=== PATIENT | female | born 1990 | race Caucasian/White ===

== ENCOUNTER → 2016-10-10 | Outpatient (CLI) | payer OTHER | END | disposition home or self-care (01) | LOC: C.PAPS 11:21 | PROVIDERS: ATTEND Physician Assistant | DX: Z12.4 Encounter for screening for malignant neoplasm of cervix (principal) ==

== ENCOUNTER → 2016-10-10 | Outpatient (CLI) | payer OTHER ==
[2016-10-13 01:32] LABS: CHLAMYDIA TRACH RNA*** NOT DETECTED (NOT DETECTED); GC (NEIS GONORRHOEAE)RNA** NOT DETECTED (NOT DETECTED)
== END ==
LOC: C.LABSPEC 18:08
PROVIDERS: ATTEND Physician Assistant
DX: Z01.419 Encounter for gynecological examination (general) (routine) without abnormal findings (principal)

== ENCOUNTER → 2017-05-15 | Outpatient (CLI) | payer OTHER ==
[2017-05-15 13:08] LABS: FOLLICLE STIMULAT HORMONE 7.91 IU/L; PROLACTIN 16.24 ng/mL
== END | disposition home or self-care (01) ==
LOC: C.LABMFLN 07:39
PROVIDERS: ATTEND Obstetrics & Gynecology
DX: Z31.41 Encounter for fertility testing (principal)

== ENCOUNTER → 2017-08-07 | Outpatient (CLI) | payer OTHER ==
--- NOTE | 2017-08-07 15:09 | DIAGNOSTIC IMAGING REPORT ---
THYROID ULTRASOUND HISTORY: E03.9 Hypothyroidism [id number] COMPARISON: None. FINDINGS: Right lobe: 6.4 x 2.3 x 1.9 cm. Dominant 2.0 x 1.7 x 1.4 cm solid and cystic nodule within the lower pole. A 9 mm hypoechoic nodule seen adjacent to the lower pole. This favors a small lymph node. Left lobe: 5.2 x 1.9 x 1.7 cm. There are 2 hypoechoic nodules/cysts in the lower pole with the largest measuring 9 x 6 mm. Isthmus: 5 mm in thickness. A few small hypoechoic nodules/cysts measuring up to 6 mm. IMPRESSION: Dominant 2.2 x 1.7 x 1.4 cm solid and cystic nodule within the lower pole of the right thyroid lobe. Recommend ultrasound-guided fine-needle aspiration for further evaluation. Electronically signed by: Ruiz Pena M.D. 08/07/2017 3:07 PM Dictated Date/Time: 08/07/2017 3:03 PM
== END | disposition home or self-care (01) ==
LOC: C.ULTR 14:34
PROVIDERS: ATTEND Internal Medicine Endocrinology, Diabetes & Metabolism
DX: E03.9 Hypothyroidism, unspecified (principal); E04.1 Nontoxic single thyroid nodule

== ENCOUNTER → 2017-09-17 | Outpatient (CLI) | payer OTHER | END | disposition home or self-care (01) | LOC: C.LABSPEC 13:51 | PROVIDERS: ATTEND Internal Medicine Endocrinology, Diabetes & Metabolism | DX: R94.6 Abnormal results of thyroid function studies (principal); E03.9 Hypothyroidism, unspecified ==

== ENCOUNTER → 2017-12-30 | Outpatient (CLI) | payer OTHER | END | disposition home or self-care (01) | LOC: C.LABSPEC 17:47 | PROVIDERS: ATTEND Internal Medicine Endocrinology, Diabetes & Metabolism | DX: E03.9 Hypothyroidism, unspecified (principal) ==